=== PATIENT | male | born 1995 | race Caucasian/White ===

== ENCOUNTER 2017-05-14 19:41 | Emergency (ER) | payer SELFPAY ==
[2017-05-14] MEDS ORDERED: Haloperidol Lactate 5 MG/ML VIAL ONE (19:49)
[2017-05-14] MEDS ORDERED: Lorazepam 2 MG/ML VIAL ONE ×2 (19:49→19:55)
[2017-05-14 20:20] LABS: Bilirubin Negative (Negative); Blood, Urine Negative (Negative); Glucose, Urine (Dipstick) Negative (Negative); Ketone, Urine Negative (Negative); Nitrite Negative (Negative); Protein, Urine (Dipstick) 30 mg/dL (Neg-Trace)
[2017-05-14 20:23] LABS: Bacteria/HPF None Seen HPF (None Seen); WBC/HPF 0-3 HPF (0-3)
[2017-05-14 20:30] LABS: Amphetamine Not Detected (NotDetected); Methadone Not Detected (NotDetected); Methamphetamine Not Detected (NotDetected)
[2017-05-14 20:34] LABS: Hyaline Casts/LPF 0-3 HYALINE CAST LPF (0-3 Hyaline)
[2017-05-14 20:35] LABS: Transitional Epithelial 0-3 HPF (0-3)
--- NOTE | 2017-05-14 21:00 | RAD ---
CHEST ONE VIEW: History: Intoxication. Comparison: None. FINDINGS: Lungs are without focal airspace consolidation, pneumothorax or effusion. Cardiac silhouette and medi astinal contours are within normal limits. IMPRESSION: No acute intrathoracic abnormality. POS: [facility]
[2017-05-14 21:10] LABS: #Eosinphils 0.1 thou/uL (0.0-0.7); #Lymphocytes 1.1 thou/uL (1.20-3.40); #Monocytes 1.3 thou/uL (0.11-0.59); #Neutrophils 14.2 thou/uL (1.40-6.50); %Basophils 0.3 % (0.0-1.0); %Eosinophils 0.4 % (0.0-10.0); %Lymphocytes 6.5 % (21.0-51.0); %Monocytes 7.8 % (0.0-10.0); Mean Platelet Volume 7.6 fL (7.4-10.4); Red Blood Cell (RBC) Count 4.32 mill/uL (4.70-6.10); White Blood Cell (WBC) Count 16.7 thou/uL (4.8-10.8)
--- NOTE | 2017-05-14 21:13 | CT ---
CT BRAIN WITHOUT CONTRAST: History: Altered mental status. Comparison: None. FINDINGS: No acute territorial infarct or hemorrhage. No midline shift of mass effect. Ventricular size and ext raaxial CSF spaces are normal. Mastoids are clear. Calvarium is intact. IMPRESSION: No acute intracranial abnormality. POS: [facility]
[2017-05-14 21:33] LABS: ALT (SGPT) 17 U/L (8-55); AST (SGOT) 27 U/L (5-34); Alkaline Phosphatase 66 U/L (40-150); Anion Gap 10 mmol/L (10-20); BUN (Urea Nitrogen) 18 mg/dL (8.9-20.6); Bilirubin, Total 0.4 mg/dL (0.2-1.2); CK (CPK) 495 U/L (30-200); Calc. Creatinine Clearance 0 mL/min (70-130); Calcium 8.5 mg/dL (7.8-10.44); Carbon Dioxide 23 mmol/L (22-29); Chloride 111 mmol/L (98-107); Estimated GFR-MDRD 85; Globulin 2.2 g/dL (2.4-3.5); Lipase 84 U/L (8-78); Protein, Total 5.7 g/dL (6.0-8.3)
[2017-05-14 21:36] LABS: Acetaminophen Less than 6.0 mcg/mL (10.0-30.0); Salicylate Less than 8.0 mg/dL (15.0-30.0)
[2017-05-14 21:41] LABS: Troponin I 0.024 ng/mL (< 0.028)
== END 2017-05-15 01:10 | disposition home or self-care (01) ==
LOC: ERS 19:41
DX: R41.82 Altered mental status, unspecified (principal); F12.10 Cannabis abuse, uncomplicated
CPT/HCPCS: 36415; 36416; 51701; 70450; 71010; 80053; 80306; 80307; 81003; 81015; 82553; 83690; 84484; 85025; 93005; 94760; 96361; 96374; 96375; J1630; J2060